=== PATIENT | female | born 1965 ===

== ENCOUNTER 2018-10-22 08:59 | Day surgery (SDC) | payer MEDICARE ==
[2016-02-07 14:44] VITALS: BMI 20.3
[2018-10-22] MEDS ORDERED: Propofol 10 mg/ml Inj (20 ML) ONE (10:49)
[2018-10-22 11:28] VITALS: PULSE 72
[2018-10-22] MEDS ORDERED: Sodium Chloride 0.9% 1,000 ML IV SCH (11:30)
[2018-10-22 13:54] VITALS: BP 128/80; RESP 16; TEMP 98.6; O2SAT 99
== END 2018-10-22 12:23 | disposition home or self-care (01) ==
LOC: ENDO 08:59
PROVIDERS: ATTEND Specialist
DX: K60.2 Anal fissure, unspecified (principal); K64.8 Other hemorrhoids; K64.4 Residual hemorrhoidal skin tags; E78.5 Hyperlipidemia, unspecified; M19.90 Unspecified osteoarthritis, unspecified site; F41.9 Anxiety disorder, unspecified; Z98.51 Tubal ligation status; J30.2 Other seasonal allergic rhinitis
CPT/HCPCS: 45378; J2001; J2704; J7030; J7040

== ENCOUNTER 2019-01-28 08:47 | Day surgery (SDC) | payer MEDICARE ==
[2019-01-26 14:02] VITALS: BMI 18.3
[2019-01-28] MEDS ORDERED: Propofol 10 mg/ml Inj (20 ML) ONE (09:33)
[2019-01-28] MEDS ORDERED: Midazolam 2 MG/2 ML VIAL ONE (09:34)
[2019-01-28] MEDS ORDERED: Sodium Chloride 0.9% 1,000 ML IV SCH (10:15)
[2019-01-28 11:26] VITALS: BP 111/76; PULSE 64; RESP 22; TEMP 97.5; O2SAT 98
== END 2019-01-28 11:37 | disposition home or self-care (01) ==
LOC: ENDO 08:47
PROVIDERS: ATTEND Specialist
DX: K20.8 Other esophagitis (principal); R13.12 Dysphagia, oropharyngeal phase; K25.9 Gastric ulcer, unspecified as acute or chronic, without hemorrhage or perforation; K29.50 Unspecified chronic gastritis without bleeding; B96.81 Helicobacter pylori [H. pylori] as the cause of diseases classified elsewhere; K44.9 Diaphragmatic hernia without obstruction or gangrene; F41.9 Anxiety disorder, unspecified; M19.90 Unspecified osteoarthritis, unspecified site; Z98.51 Tubal ligation status
CPT/HCPCS: 43239; 88305; 88312; 88342; J2001; J2250; J2704; J7030; J7040

== ENCOUNTER 2019-03-25 10:11 | Outpatient (CLI) | payer MEDICARE | END 2019-03-25 10:12 | disposition home or self-care (01) | LOC: RAD 10:11 ==

== ENCOUNTER 2019-03-26 12:01 | Outpatient (CLI) | payer MEDICARE | END 2019-03-26 12:02 | disposition home or self-care (01) | LOC: RAD 12:01 ==